=== PATIENT | female | born 1935 | race Caucasian/White ===

== ENCOUNTER 2022-05-03 22:00 | Inpatient (IN) ==
[2022-05-03] MEDS ORDERED: ACETAMINOPHEN 500 MG TAB PO STA (22:22)
[2022-05-03 22:53] LABS: Appearance Urine Clear (Clear); Bacteria Urine Automated Negative (Negative); Bilirubin Urine Negative (Negative); Blood Urine Negative (Negative); Color Urine Yellow; Glucose Urine UA Negative (Negative); Ketones Urine Negative (Negative); Leukocyte Esterase Urine Trace (Negative); Nitrite Urine Negative (Negative); Protein Urine Negative (Negative); RBC Urine Automated 0-4 /hpf (0-4); Urobilinogen Urine Negative (Negative)
[2022-05-03] MEDS ORDERED: hydrALAZINE HCL 20 MG/ML VIAL IV STA (23:42)
[2022-05-03 23:50] LABS: Basophils # (auto) 0.03 K/uL (0-0.2); Basophils % (auto) 0.4 %; Eosinophils # (auto) 0.19 K/uL (0-0.50); Eosinophils % (auto) 2.3 %; Hematocrit (blood only) 36.7 % (34.1-44.9); Hemoglobin 11.9 g/dl (12.0-16.0); Immature Granulocytes # (auto) 0.07 K/uL (0.00-0.02); Immature Granulocytes % (auto) 0.8 %; Lymphocytes # (auto) 1.23 K/uL (1.2-3.4); Lymphocytes % (auto) 14.8 %; Mean Corpuscular Hemoglobin 27.8 pg (25.0-34.0); Mean Corpuscular Hgb Conc 32.4 g/dL (32.0-36.0); Mean Corpuscular Volume 85.7 fL (80.0-100.0); Mean Platelet Volume 11.9 fL (9.4-12.3); Monocytes # (auto) 0.39 K/uL (0.24-0.82); Monocytes % (auto) 4.7 %; Neutrophils # (auto) 6.42 K/uL (1.4-6.5); Platelet Count 193 K/uL (130-400); RDW Coefficient of Variation 12.4 % (11.5-14.5); Red Blood Count 4.28 M/uL (3.93-5.22); White Blood Count 8.33 K/ul (4.8-10.8)
[2022-05-04 00:04] LABS: Alanine Aminotransferase 24 U/L (7-52); Albumin Globulin Ratio 1.7 (0.9-2); Alkaline Phosphatase 72 U/L (34-104); Anion Gap 7 (3-11); Aspartate Aminotransferase 26 U/L (13-39); BUN Creatinine Ratio 27.6 (10-20); Bilirubin,Total 0.3 mg/dl (0.2-1.0); Blood Urea Nitrogen 24 mg/dl (6-23); Calcium 9.9 mg/dl (8.5-10.1); Carbon Dioxide 30 mmol/L (21-32); Chloride 102 mmol/L (98-107); Est GFR (African American) 69.4 ml/min; Est GFR (Non-African American) 59.9 ml/min; Globulin 2.4 gm/dl (2.5-4.0); Glucose 148 mg/dl (70-99(Fasting)); Magnesium 1.8 mg/dl (1.7-2.4); Potassium 3.6 mmol/L (3.5-5.1); Sodium 139 mmol/L (136-145); Total Protein 6.4 gm/dl (6.0-8.3)
[2022-05-04 00:07] LABS: Troponin I High Sensitivity 12.9 pg/ml (0-14)
[2022-05-04 00:17] LABS: Thyroid Stimulating Hormone 4.783 uIu/ml (0.300-4.500)
[2022-05-04 00:21] LABS: INR 1.2 (0.9-1.1); Prothrombin Time 12.7 Seconds (9.0-12.0)
--- NOTE | 2022-05-04 00:30 | Emergency Department Note ---
Impression & Plan Fall, CHI (closed head injury), Contusion of hip, left, Acute low back pain, Hypoxia ED Provider Note INFORMANT: Patient ED PROVIDER(S): Shaheed Jordan MD CHIEF COMPLAINT: Fall PLAN: Disposition: Admitted Condition: Good Outpatient prescription management: none Referral: None MEDICAL DECISION MAKING: Patient presented after a fall. She was noted to be very hypertensive and mildly hypoxic on examination. She was in good spirits. Large hematoma noted to the left forehead. X-ray imaging of the left hip and chest were unremarkable. No sign of fracture or dislocation. The patient's head CT did not show any acute intracranial findings. CT scan of the cervical spine was negative as well. Patient had an unremarkable CBC and chemistry panel. Urinalysis did not reveal any clear sign of infection. ECG showed a bradycardia but no acute findings. Patient's lumbar spine CT showed degenerative changes and postoperative findings but no acute compression fracture or other traumatic injury. The patient was doing well on supplemental oxygen. She did require dose of IV hydralazine for her significantly elevated blood pressure. She was also given Tylenol and an ice pack for the hematoma. I did discuss the findings with the patient and her daughter. Further management in the hospital was felt to be appropriate. Consultation was made with the [facility] hospitalist sruthi samuels. Patient was evaluated in the ER and admitted for further management. Triage Nursing notes reviewed and agree them. Vital Signs: reviewed and remarkable for hypertension and mild hypoxia Differential diagnosis: Trauma, infection, dehydration, metabolic abnormality, hypo/hyperglycemia, electrolyte disturbance, anemia, hypoxia, cardiac sources, intracerebral event, toxicologic, neurologic, as well as other pathologies. Diagnostics interpreted by me: ECG: Twelve-lead ECG reveals a sinus bradycardia 58 bpm. Septal Q waves present. No ST elevation or depression. Normal axis. Cardiac Monitoring: Cardiac monitoring ordered by me: The patient was placed on continuous cardiac monitoring and observed. It revealed a normal sinus rhythm at 61 beats per minute without ectopy or evidence of dysrhythmia. Imaging studies: CT scans of the head, cervical spine and lumbar spine as noted above. I refer you to the EMR for further details. Chest x-ray. Findings: A chest x-ray was performed and revealed no pneumothorax, effusion, infiltrate, pulmonary edema, free air under the diaphragm, or wide mediastinum. Impression: No acute disease. X-ray imaging of the left hip reveals a normal prosthetic without evidence of dislocation or periprosthetic fracture. HPI: The patient is a 86year old female who presents to the Emergency Room with complaints of fall. This started just prior to arrival and is described as losing her balance after showering and landing on her left side. Patient states that she did strike her left hip and her left forehead on the floor. EMS was summoned. Patient did note some mild shoulder aching, mild neck discomfort, low back pain, left hip pain. On arrival patient was noted to be mildly hypoxic. The patient has took no medication for relieving factors. Current pain is rated as 2/10. Pt denies LOC, fevers, chills, diaphoresis, visual changes, chest pain, breathing difficulties, nausea, vomiting, abdominal pain, melena, hematochezia, urinary symptoms, numbness, focal weakness, lymphadenopathy, rash, or other complaints. ROS: See above HPI for pertinent positives & negatives. A total of 10 systems reviewed and were otherwise negative. PAST MEDICAL HISTORY:See Below , hypertension, dementia PAST SURGICAL HISTORY:See Below, left hip replacement FAMILY HISTORY:See Below SOCIAL HISTORY:See Below, retired HOME MEDICATIONS:See Below ALLERGIES:See Below VITALS:See Below PHYSICAL EXAMINATION: GENERAL: Awake, alert, well-appearing, in no distress HENT: Normocephalic, large left forehead hematoma present. PERRLA. EOMI. Oropharynx unremarkable. EYES: Normal conjunctiva. Sclera non-icteric. NECK: Inspection normal. Non-tender. Supple. No nuchal rigidity. FROM. No masses. RESPIRATORY: Clear to auscultation. No wheezes. No rales. Normal respiratory effort. CARDIAC: Normal rate. Normal rhythm. No murmurs. No rubs. Extremities warm and well perfused. Pulses equal. No JVD. GI: Soft, non-distended. No tenderness to palpation. No rebound or guarding. No masses. RECTAL: Deferred. MUSCULOSKELETAL: Atraumatic. Chest examination reveals no tenderness. The back is symmetrical on inspection without obvious abnormality. There is no CVA tenderness to palpation. No joint edema. LOWER EXTREMITIES: Calves are equal size bilaterally and non-tender. No edema. No discoloration. NEURO: Mildly demented sensorium with short-term memory issues but otherwise unremarkable. No sensory or motor deficits noted. SKIN: No rash or jaundice noted. Shaheed Jordan MD Past Med/Surg History Medical History CHF (congestive heart failure) GERD (gastroesophageal reflux disease) Hypertension Social History Smoking Status: Never smoker Preferred Language: Chadian Feels Safe at Home: Yes Allergies Allergies Allergy/AdvReac Type Severity Reaction Status Date / Time Sulfa (Sulfonamide Allergy Intermediate RASH Verified 05/03/22 23:06 Antibiotics) ranitidine AdvReac Intermediate CONFUSION Verified 05/03/22 23:06 Home Meds Home Medications Medication Instructions Recorded Confirmed ascorbic acid (vitamin C) 500 mg 500 mg PO DAILY 03/28/22 05/03/22 tablet (Vitamin C) aspirin 81 mg tablet,delayed 81 mg PO DAILY 03/28/22 05/03/22 release cholecalciferol (vitamin D3) 50 50 mcg PO DAILY 03/28/22 05/03/22 mcg (2,000 unit) tablet (Vitamin D3) coenzyme Q10 100 mg capsule 100 mg PO DAILY 03/28/22 05/03/22 (CoQ-10) docusate sodium 250 mg capsule 500 mg PO HS 03/28/22 05/03/22 (Stool Softener) fluoxetine 20 mg capsule 20 mg PO DAILY 03/28/22 05/03/22 furosemide 20 mg tablet 40 mg PO DAILY 03/28/22 05/03/22 ibuprofen 200 mg tablet 400 mg PO TID 03/28/22 05/03/22 metoprolol succinate 25 mg 25 mg PO DAILY 03/28/22 05/03/22 tablet,extended release 24 hr mirtazapine 7.5 mg tablet 7.5 mg PO HS 03/28/22 05/03/22 multivitamin 1 tab PO DAILY 03/28/22 05/03/22 pantoprazole 40 mg tablet,delayed 40 mg PO DAILY 03/28/22 05/03/22 release polyethylene glycol 3350 17 gram 17 g PO HS 03/28/22 05/03/22 oral powder packet (Miralax) calcium carbonate 500 mg calcium 500 mg PO DAILY 05/03/22 05/03/22 (1,250 mg) tablet losartan 100 mg tablet 100 mg PO DAILY 05/03/22 05/03/22 Results & Data (ED) Vital Signs Vital Signs - 24 hr 05/03/22 22:34 05/03/22 22:34 05/03/22 22:34 Temperature 36.8 C 36.8 C Temperature Source Oral Oral Pulse Rate 65 65 Pulse Rate [Finger] 65 Pulse Rhythm Regular Regular Pulse Rhythm [Finger] Regular Pulse Strength Normal Pulse Strength [Finger] Normal Respiratory Rate 20 20 20 Respiratory Effort / Characteristics Non-Labored Spontaneous Non-Labored Spontaneous Respiratory Depth Normal Normal Blood Pressure 220/109 H Blood Pressure [Right Arm] 220/109 H Blood Pressure Mean 146 Blood Pressure Mean [Right Arm] 146 Blood Pressure Position [Right Arm] Sitting Pulse Oximetry 87 L 96 87 L Oxygen Delivery Method Room Air Nasal Cannula Room Air Oxygen Flow Rate 2 2 Sepsis Recent Fever Within 48 Hours No Sepsis New/Unexplained Change in Mental Status N/A Sepsis Action Taken by Nursing No Action Required 05/04/22 00:26 Temperature Temperature Source Pulse Rate Pulse Rate [Finger] 58 L Pulse Rhythm Pulse Rhythm [Finger] Pulse Strength Pulse Strength [Finger] Respiratory Rate 20 Respiratory Effort / Characteristics Respiratory Depth Blood Pressure Blood Pressure [Right Arm] 184/97 H Blood Pressure Mean Blood Pressure Mean [Right Arm] 126 Blood Pressure Position [Right Arm] Pulse Oximetry 99 Oxygen Delivery Method Room Air Oxygen Flow Rate Sepsis Recent Fever Within 48 Hours Sepsis New/Unexplained Change in Mental Status Sepsis Action Taken by Nursing Laboratory Data Result diagrams: 05/03/22 23:10 05/03/22 23:10 Lab Results 05/03/22 05/03/22 05/03/22 Range/Units 22:27 22:27 23:10 WBC (4.8-10.8) K/ul RBC (3.93-5.22) M/uL Hgb (12.0-16.0) g/dl Hct (34.1-44.9) % MCV (80.0-100.0) fL MCH (25.0-34.0) pg MCHC (32.0-36.0) g/dL RDW Std Deviation (36.4-46.3) fL RDW Coeff of Ibeth (11.5-14.5) % Plt Count (130-400) K/uL MPV (9.4-12.3) fL Immature Gran % (Auto) % Neut % (Auto) % Lymph % (Auto) % Hardy % (Auto) % Eos % (Auto) % Baso % (Auto) % Neut # (Auto) (1.4-6.5) K/uL Lymph # (Auto) (1.2-3.4) K/uL Hardy # (Auto) (0.24-0.82) K/uL Eos # (Auto) (0-0.50) K/uL Baso # (Auto) (0-0.2) K/uL Immature Gran # (Auto) (0.00-0.02) K/uL PT 12.7 H (9.0-12.0) Seconds INR 1.2 H (0.9-1.1) Sodium (136-145) mmol/L Potassium (3.5-5.1) mmol/L Chloride (98-107) mmol/L Carbon Dioxide (21-32) mmol/L Anion Gap (3-11) BUN (6-23) mg/dl Creatinine (0.6-1.2) mg/dl Est Cr Clr Drug Dosing Est GFR ( Amer) ml/min Est GFR (Non-Af Amer) ml/min BUN/Creatinine Ratio (10-20) Glucose (70-99(Fasting)) mg/dl Calcium (8.5-10.1) mg/dl Magnesium (1.7-2.4) mg/dl Total Bilirubin (0.2-1.0) mg/dl AST (13-39) U/L ALT (7-52) U/L Alkaline Phosphatase (34-104) U/L Troponin I High Sens (0-14) pg/ml Total Protein (6.0-8.3) gm/dl Albumin (3.4-5.0) gm/dl Globulin (2.5-4.0) gm/dl Albumin/Globulin Ratio (0.9-2) TSH (0.300-4.500) uIu/ml Free T4 (0.61-1.60) ng/dl Urine Color Yellow Urine Appearance Clear (Clear) Urine pH 6.0 (4.5-7.5) Ur Specific [place] 1.010 (1.000-1.030) Urine Protein Negative (Negative) Urine Glucose (UA) Negative (Negative) Urine Ketones Negative (Negative) Urine Blood Negative (Negative) Urine Nitrite Negative (Negative) Urine Bilirubin Negative (Negative) Urine Urobilinogen Negative (Negative) Ur Leukocyte Esterase Trace H (Negative) Urine WBC (Auto) 5-10 H (0-5) /hpf Urine RBC (Auto) 0-4 (0-4) /hpf U Hyaline Cast (Auto) 1-5 (0-5) /lpf U Epithel Cells (Auto) 10-20 H (0-5) /lpf Urine Bacteria (Auto) Negative (Negative) SARS-CoV-2, RNA, NAAT NEGATIVE (NEGATIVE) 05/03/22 05/03/22 05/03/22 Range/Units 23:10 23:10 23:10 WBC 8.33 (4.8-10.8) K/ul RBC 4.28 (3.93-5.22) M/uL Hgb 11.9 L (12.0-16.0) g/dl Hct 36.7 (34.1-44.9) % MCV 85.7 (80.0-100.0) fL MCH 27.8 (25.0-34.0) pg MCHC 32.4 (32.0-36.0) g/dL RDW Std Deviation 39.0 (36.4-46.3) fL RDW Coeff of Ibeth 12.4 (11.5-14.5) % Plt Count 193 (130-400) K/uL MPV 11.9 (9.4-12.3) fL Immature Gran % (Auto) 0.8 % Neut % (Auto) 77.0 % Lymph % (Auto) 14.8 % Hardy % (Auto) 4.7 % Eos % (Auto) 2.3 % Baso % (Auto) 0.4 % Neut # (Auto) 6.42 (1.4-6.5) K/uL Lymph # (Auto) 1.23 (1.2-3.4) K/uL Hardy # (Auto) 0.39 (0.24-0.82) K/uL Eos # (Auto) 0.19 (0-0.50) K/uL Baso # (Auto) 0.03 (0-0.2) K/uL Immature Gran # (Auto) 0.07 H (0.00-0.02) K/uL PT (9.0-12.0) Seconds INR (0.9-1.1) Sodium 139 (136-145) mmol/L Potassium 3.6 (3.5-5.1) mmol/L Chloride 102 (98-107) mmol/L Carbon Dioxide 30 (21-32) mmol/L Anion Gap 7 (3-11) BUN 24 H (6-23) mg/dl Creatinine 0.87 (0.6-1.2) mg/dl Est Cr Clr Drug Dosing Not Reportable Est GFR ( Amer) 69.4 ml/min Est GFR (Non-Af Amer) 59.9 ml/min BUN/Creatinine Ratio 27.6 H (10-20) Glucose 148 H (70-99(Fasting)) mg/dl Calcium 9.9 (8.5-10.1) mg/dl Magnesium 1.8 (1.7-2.4) mg/dl Total Bilirubin 0.3 (0.2-1.0) mg/dl AST 26 (13-39) U/L ALT 24 (7-52) U/L Alkaline Phosphatase 72 (34-104) U/L Troponin I High Sens 12.9 D (0-14) pg/ml Total Protein 6.4 (6.0-8.3) gm/dl Albumin 4.0 (3.4-5.0) gm/dl Globulin 2.4 L (2.5-4.0) gm/dl Albumin/Globulin Ratio 1.7 (0.9-2) TSH 4.783 H (0.300-4.500) uIu/ml Free T4 1.17 (0.61-1.60) ng/dl Urine Color Urine Appearance (Clear) Urine pH (4.5-7.5) Ur Specific [place]ell (1.000-1.030) Urine Protein (Negative) Urine Glucose (UA) (Negative) Urine Ketones (Negative) Urine Blood (Negative) Urine Nitrite (Negative) Urine Bilirubin (Negative) Urine Urobilinogen (Negative) Ur Leukocyte Esterase (Negative) Urine WBC (Auto) (0-5) /hpf Urine RBC (Auto) (0-4) /hpf U Hyaline Cast (Auto) (0-5) /lpf U Epithel Cells (Auto) (0-5) /lpf Urine Bacteria (Auto) (Negative) SARS-CoV-2, RNA, NAAT (NEGATIVE) Administered Medications Discontinued Medications Acetaminophen (Acetaminophen 500 Mg Tab) 1,000 mg PO NOW STA Stop: 05/03/22 22:23 Last Admin: 05/03/22 23:11 Dose: 1,000 mg Documented By: JAILENE Hydralazine HCl (Hydralazine Hcl 20 Mg/Ml Vial) 5 mg IV NOW STA Stop: 05/03/22 23:43 Last Admin: 05/03/22 23:53 Dose: 5 mg Documented By: JAILENE Discharge Plan Visit Data Chief Complaint: Fall ED Provider: Shaheed Jordan Discharge Problem: Fall, CHI (closed head injury), Contusion of hip, left, Acute low back pain, Hypoxia Forms Stand Alone Forms: My [facility] [facility] Prescriptions Prescriptions: No Action losartan 100 mg tablet 100 mg PO DAILY calcium carbonate [Calcium 500] 500 mg calcium (1,250 mg) Tablet 500 mg PO DAILY multivitamin Tablet 1 tab PO DAILY polyethylene glycol 3350 [Miralax] 17 gram Powder In Packet 17 g PO HS aspirin [Aspir-Low] 81 mg Tablet,Delayed Release (Dr/Ec) 81 mg PO DAILY ascorbic acid (vitamin C) [Vitamin C] 500 mg Tablet 500 mg PO DAILY pantoprazole 40 mg Tablet,Delayed Release (Dr/Ec) 40 mg PO DAILY ibuprofen 200 mg Tablet 400 mg PO TID Rx Instructions: noon,evening and bedtime furosemide 20 mg tablet 40 mg PO DAILY metoprolol succinate 25 mg tablet extended release 24 hr 25 mg PO DAILY docusate sodium [Stool Softener] 250 mg Capsule 500 mg PO HS fluoxetine 20 mg capsule 20 mg PO DAILY coenzyme Q10 [CoQ-10] 100 mg Capsule 100 mg PO DAILY mirtazapine 7.5 mg tablet 7.5 mg PO HS cholecalciferol (vitamin D3) [Vitamin D3] 50 mcg (2,000 unit) Tablet 50 mcg PO DAILY Referrals Referrals: Edgar Rodriguez D.O. [Primary Care Provider] -
[2022-05-04 01:00] LABS: T4 Free Thyroxine 1.17 ng/dl (0.61-1.60)
[2022-05-04] MEDS ORDERED: oxyCODONE HCL IR 5 MG TAB (IMMEDIATE RELEASE) PO PRN (02:47)
[2022-05-04] MEDS ORDERED: POLYETHYLENE (MIRALAX) 17 GM PACK PO PRN (02:47)
[2022-05-04] MEDS ORDERED: ACETAMINOPHEN 325 MG TAB PO PRN (02:47)
[2022-05-04] MEDS ORDERED: hydrALAZINE HCL 20 MG/ML VIAL IV PRN (02:47)
--- NOTE | 2022-05-04 04:46 | History and Physical Report ---
DATE OF ADMISSION: 05/04/2022. CHIEF COMPLAINT: Status post fall. HISTORY OF PRESENT ILLNESS: An 86-year-old female with past medical history significant for AFib, not on anticoagulation, the patient states she bleeds easily, history of 2 strokes, history of hypertension, GERD, depression, presents with a fall. 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 Seems after left hip arthroplasty, did fine in rehab and since then, she is living with her daughter. She is ambulating with a walker. Today in laundry room, she was standing with walker and tried to turn when , she fell on the floor on the left side and hit her head. There is a bruise on the left of the forehead . There is no loss of consciousness. In the ER when she came in, on room air, she was hypoxic at 87%, with 2 liters, she is saturating fine.Says initially after fall she was short of breath, but right now she is feeling okay. Denies any chest pain, no nausea, no abdominal pain. Normal bowel and bladder movements. No recent fever or chills. Occasional cough. Says she has some mild headache. Her vision is okay when she uses glasses. No runny nose, no sore throat. Appetite is okay. Daughter in the room is helping with the H and P. Currently, resting comfortably and hemodynamically stable. Blood pressure is somewhat running high. ALLERGIES: TO SULFA ANTIBIOTICS, PENICILLIN. PAST MEDICAL HISTORY: As mentioned above. PAST SURGICAL HISTORY: Back surgery, feet surgery, left hip surgery. MEDICATIONS: The patient is on ascorbic acid 500 mg p.o. daily, aspirin 81 mg p.o. daily, calcium carbonate 500 mg p.o. daily, vitamin D 50 mcg p.o. daily, Coenzyme Q10 100 mg p.o. daily, Colace 500 mg p.o. at bedtime, fluoxetine 20 mg p.o. daily, Lasix 40 mg p.o. daily, ibuprofen 400 mg t.i.d., losartan 100 mg p.o. daily, metoprolol succinate 25 mg p.o. daily, mirtazapine 7.5 mg p.o. at bedtime, multivitamin 1 tablet p.o. daily, Protonix 40 mg p.o. daily, MiraLax 17 g p.o. at bedtime. FAMILY HISTORY: Father and mother had heart disease. SOCIAL HISTORY: No smoking, no alcohol. Currently lives with her daughter. REVIEW OF SYSTEMS: As per HPI. Rest of review of systems is negative. PHYSICAL EXAMINATION: GENERAL: The patient is of moderate build, not in acute distress. VITAL SIGNS: Temperature 36.8, pulse 61, respiratory rate 20, blood pressure 196/85, oxygen 98% on room air. HEENT: Pupils equal, round and reactive to light. Extraocular muscles intact. Oral mucosa moist. NECK: No JVD, no neck masses. CARDIOVASCULAR: S1 and S2 heard. Regular rate and rhythm. No murmur, no gallop. RESPIRATORY SYSTEM: Normal AP diameter. No accessory muscle use. No wheezing, no crackles. ABDOMEN: Soft, bowel sounds present, nontender, no distention. CENTRAL NERVOUS SYSTEM: Cranial nerves II through XII are grossly intact. No facial droop. Speech is clear. Obeys simple commands. Moves extremities. EXTREMITIES: Mild pedal edema present, painful movements of the left lower extremity. No erythema seen. LABORATORY DATA: WBC 8.3, hemoglobin 11.9, hematocrit 36.7, platelets 193. PT 12.7, INR 1.2. Sodium 139, potassium 3.6, chloride 102, bicarbonate 30, BUN 24, creatinine 0.8, serum glucose 148, calcium 9.9, magnesium 1.8, total bilirubin 0.3, AST 26, ALT 24, alkaline phosphatase 102. Troponin I high sensitivity 12.9. BNP 435. TSH is 4.7, free T4 1.1. Urinalysis, trace leukocyte esterase. SARS-CoV-2 rapid test negative. IMAGING DATA: Chest x-ray, no acute findings. Lumbar spine CT preliminary report unremarkable. Head CT, left frontal scalp hematoma seen. Otherwise, no acute findings. Cervical spine CT mild to moderate degenerative changes. No acute findings. EKG: Sinus bradycardia at a rate of 58, no acute ST changes seen. ASSESSMENT AND PLAN: This is an 86-year-old female who presents with fall. 1. Fall: Mechanical fall, hit on head. Denies LOC. Left frontal scalp hematoma present. History of falls in the past, ambulates with a walker. We will do PT/OT. Social service to help with discharge planning, rehab versus home PT. 2. History of atrial fibrillation: On metoprolol and aspirin. Not on any further anticoagulation because the patient says she bleeds easily. We will monitor. 3. History of depression: Continue fluoxetine. 4. History of hypertension: On metoprolol, losartan and Lasix. We will monitor blood pressure. Currently, blood pressure running high, could be situational. Place on IV hydralazine p.r.n. 5. History of depression: Continue fluoxetine and mirtazapine. 6. Gastroesophageal reflux disease: Continue Protonix. 7. Deep venous thrombosis prophylaxis: SCDs for now. DISPOSITION: Admit to medical floor. PT/OT. Social service to help with discharge planning. CODE STATUS: DNR/DNI as per discussion with the daughter and the patient. Job ID: [id number] MTDD
--- NOTE | 2022-05-04 07:15 | CT Scan Report ---
HEAD CT NONCONTRAST CT DOSE: 1763.61 mGy.cm HISTORY: fall, left hematoma TECHNIQUE: Multiaxial CT images of the head were performed without the use of intravenous contrast. A utomated exposure control was utilized for this study. A dose lowering technique was utilized adheri ng to the principles of ALARA. Comparison: Head CT 03/28/2022. Findings: The paranasal sinuses and mastoid air cells are clear. The calvarium and skull base are int act. There is no mass, hematoma, midline shift, acute infarct. White matter hypodensity is nonspecifi c but suggestive of microvascular ischemic change. The ventricles and sulci demonstrate mild age-rela gera involutional changes. Left frontal/supraorbital scalp hematoma. Impression: No acute intracranial abnormality. Atrophy and microvascular ischemic changes. Left frontal scalp hem atoma. ACT 112: Negative or not required by law. Electronically signed by: Enmanuel Myers M.D. 05/04/2022 7:14 AM
--- NOTE | 2022-05-04 07:19 | CT Scan Report ---
LUMBAR SPINE CT CT DOSE: HISTORY: fall, low back pain TECHNIQUE: Multiaxial CT images of the lumbar spine were performed and reformatted in the sagittal an d coronal plane without the use of contrast. A dose lowering technique was utilized adhering to the principles of ALARA. COMPARISON: None. FINDINGS: Mild dextroscoliosis. L4-S1 posterior decompression and fusion with pedicle screws and rods . The hardware appears intact. 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 The visualized sacrum is intact. Partially visualized large hypodense lesion within th e left kidney likely representing a cyst. Paravertebral soft tissues are unremarkable. Moderate centr al canal narrowing at L3-L4. IMPRESSION: 1. No fractures within the lumbar spine. 2. Degenerative and postoperative changes as described above. ACT 112: Negative or not required by law. Electronically signed by: Enmanuel Myers M.D. 05/04/2022 7:17 AM
[2022-05-04 07:30] LABS: Basophils # (auto) 0.04 K/uL (0-0.2); Basophils % (auto) 0.5 %; Eosinophils # (auto) 0.17 K/uL (0-0.50); Hematocrit (blood only) 35.3 % (34.1-44.9); Hemoglobin 11.4 g/dl (12.0-16.0); Immature Granulocytes # (auto) 0.04 K/uL (0.00-0.02); Immature Granulocytes % (auto) 0.5 %; Lymphocytes % (auto) 13.2 %; Mean Corpuscular Hemoglobin 27.7 pg (25.0-34.0); Mean Corpuscular Hgb Conc 32.3 g/dL (32.0-36.0); Mean Corpuscular Volume 85.7 fL (80.0-100.0); Mean Platelet Volume 11.4 fL (9.4-12.3); Monocytes # (auto) 0.56 K/uL (0.24-0.82); Monocytes % (auto) 6.7 %; Neutrophils # (auto) 6.44 K/uL (1.4-6.5); Neutrophils % (auto) 77.1 %; Platelet Count 168 K/uL (130-400); RDW Coefficient of Variation 12.4 % (11.5-14.5); RDW Standard Deviation 38.9 fL (36.4-46.3); Red Blood Count 4.12 M/uL (3.93-5.22); White Blood Count 8.35 K/ul (4.8-10.8)
--- NOTE | 2022-05-04 07:37 | XRay Report ---
XR hip LT 2V w pelvis CLINICAL HISTORY: fall. Left hip pain. COMPARISON STUDY: None. FINDINGS: The bones are osteopenic. There is a left hip hemiarthroplasty. The hardware appears intact . L4 through S1 posterior decompression and fusion with pedicle screws and rods. No fracture or dislo cation within the left hip. Mild lateral soft tissue swelling within the left hip. IMPRESSION: No fracture or dislocation within the pelvis or hips. ACT 112: Negative or not required by law. Electronically signed by: Enmanuel Myers M.D. 05/04/2022 7:35 AM
--- NOTE | 2022-05-04 07:39 | XRay Report ---
XR chest 1V portable HISTORY: fall, hypoxia COMPARISON: Chest 03/28/2022. FINDINGS: The cardiac silhouette remains mildly enlarged. Postoperative changes again noted within th e right lung apex. No pleural effusions. No pneumothorax. No new focal lung consolidations to suggest pneumonia. Mild chronic interstitial thickening persists. No evidence for pulmonary edema. IMPRESSION: Chronic changes as described above. No acute process within the chest. ACT 112: Negative or not required by law. Electronically signed by: Enmanuel Myers M.D. 05/04/2022 7:38 AM
--- NOTE | 2022-05-04 08:02 | CT Scan Report ---
CT cervical spine wo con CLINICAL HISTORY: 86 years-old Female with fall. Acute neck pain status post fall COMPARISON: Head CT of same day. TECHNIQUE: Multiple axial CT images of the cervical spine were obtained without contrast. A dose low ering technique was utilized adhering to the principles of ALARA. FINDINGS: Demineralized appearance of the bones with multilevel degenerative changes. Grade 1 anterol isthesis T1 on T2 is likely degenerative. Multilevel degenerative related fusion of the facets. Mild levoscoliosis may be positional. No acute fracture or subluxation is identified. Evaluation central c anal and neuroforamina is better assessed by MRI. Subcentimeter bone island involves the right transv erse process at T1. Intralobular septal thickening with groundglass densities of the lung apices. Prior pulmonary resecti on of the right lung apex. No pneumothorax. Heterogeneous thyroid. No prevertebral edema. IMPRESSION: No acute cervical spine fracture or subluxation. ACT 112: Negative or not required by law. The above report was generated using voice recognition software. It may contain grammatical, syntax o r spelling errors. Electronically signed by: Isreal Eubanks M.D. 05/04/2022 8:00 AM
[2022-05-04 08:03] LABS: Anion Gap 6 (3-11); BUN Creatinine Ratio 29.1 (10-20); Blood Urea Nitrogen 23 mg/dl (6-23); Calcium 9.7 mg/dl (8.5-10.1); Carbon Dioxide 29 mmol/L (21-32); Chloride 105 mmol/L (98-107); Est GFR (Non-African American) 67.3 ml/min; Glucose 131 mg/dl (70-99(Fasting)); Magnesium 1.8 mg/dl (1.7-2.4); Potassium 3.6 mmol/L (3.5-5.1); Sodium 140 mmol/L (136-145)
[2022-05-04] MEDS: CHOLECALCIFEROL 1,000 UNITS 25 MCG TAB PO SCH (09:23)
[2022-05-04] MEDS: CALCIUM CARBONATE 500 MG CHEWABLE TAB PO SCH (09:23)
[2022-05-04] MEDS: LOSARTAN POTASSIUM 50 MG TAB PO SCH (09:23)
[2022-05-04] MEDS: PANTOprazole 40 MG TAB PO SCH (09:23)
[2022-05-04] MEDS: FLUoxetine HCL 20 MG CAP PO SCH (09:23)
[2022-05-04] MEDS: ASCORBIC ACID 500 MG TAB PO SCH (09:23)
[2022-05-04] MEDS: ASPIRIN 81 MG ECTAB PO SCH (09:23)
[2022-05-04] MEDS: METOPROLOL SUCC 25MG EXT REL TAB PO SCH (09:24)
[2022-05-04] MEDS: MULTIVITAMIN TAB PO SCH (09:24)
[2022-05-04] MEDS: FUROSEMIDE 40 MG TAB PO SCH (09:24)
--- NOTE | 2022-05-04 14:32 | Electrocardiogram Report ---
Test Reason : Blood Pressure : / mmHG Vent. Rate : 060 BPM Atrial Rate : 059 BPM P-R Int : 000 ms QRS Dur : 078 ms QT Int : 464 ms P-R-T Axes : 000 -07 027 degrees QTc Int : 464 ms Poor data quality, interpretation may be adversely affected Sinus rhythm Normal ECG When compared with ECG of 28-MAR-2022 13:30, No significant change Confirmed by Trent Swartz ([id number]) on 05/04/2022 2:31:55 PM Referred By: REFERRED SELF Confirmed By:Trent Swartz
[2022-05-04] MEDS ORDERED: DOCUSATE CALCIUM 240 MG CAPSULE PO SCH (21:00)
[2022-05-04] MEDS ORDERED: MIRTAZAPINE TAB 15 MG TAB PO SCH (21:00)
[2022-05-04] MEDS ORDERED: POLYETHYLENE (MIRALAX) 17 GM PACK PO SCH (21:00)
[2022-05-05] MEDS: CHOLECALCIFEROL 1,000 UNITS 25 MCG TAB PO SCH (09:54)
[2022-05-05] MEDS: FUROSEMIDE 40 MG TAB PO SCH (09:54)
[2022-05-05] MEDS: METOPROLOL SUCC 25MG EXT REL TAB PO SCH (09:54)
[2022-05-05] MEDS: PANTOprazole 40 MG TAB PO SCH (09:54)
[2022-05-05] MEDS: LOSARTAN POTASSIUM 50 MG TAB PO SCH (09:54)
[2022-05-05] MEDS: ASPIRIN 81 MG ECTAB PO SCH (09:54)
[2022-05-05] MEDS: MULTIVITAMIN TAB PO SCH (09:54)
[2022-05-05] MEDS: ASCORBIC ACID 500 MG TAB PO SCH (09:54)
[2022-05-05] MEDS: FLUoxetine HCL 20 MG CAP PO SCH (09:55)
[2022-05-05] MEDS: CALCIUM CARBONATE 500 MG CHEWABLE TAB PO SCH (10:00)
--- NOTE | 2022-05-05 16:05 | Discharge Summary ---
Date of Service May 05, 2022 Admission HPI Per Admitting Provider An 86-year-old female with past medical history significant for AFib, not on anticoagulation, the patient states she bleeds easily, history of 2 strokes, history of hypertension, GERD, depression, presents with a fall. 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 Seems after left hip arthroplasty, did fine in rehab and since then, she is living with her daughter. She is ambulating with a walker. Today in laundry room, she was standing with walker and tried to turn when , she fell on the floor on the left side and hit her head. There is a bruise on the left of the forehead . There is no loss of consciousness. In the ER when she came in, on room air, she was hypoxic at 87%, with 2 liters, she is saturating fine.Says initially after fall she was short of breath, but right now she is feeling okay. Denies any chest pain, no nausea, no abdominal pain. Normal bowel and bladder movements. No recent fever or chills. Occasional cough. Says she has some mild headache. Her vision is okay when she uses glasses. No runny nose, no sore throat. Appetite is okay. Daughter in the room is helping with the H and P. Currently, resting comfortably and hemodynamically stable. Blood pressure is somewhat running high. Admission Exam Per Admitting Provider GENERAL: The patient is of moderate build, not in acute distress. VITAL SIGNS: Temperature 36.8, pulse 61, respiratory rate 20, blood pressure 196/85, oxygen 98% on room air. HEENT: Pupils equal, round and reactive to light. Extraocular muscles intact. Oral mucosa moist. NECK: No JVD, no neck masses. CARDIOVASCULAR: S1 and S2 heard. Regular rate and rhythm. No murmur, no gallop. RESPIRATORY SYSTEM: Normal AP diameter. No accessory muscle use. No wheezing, no crackles. ABDOMEN: Soft, bowel sounds present, nontender, no distention. CENTRAL NERVOUS SYSTEM: Cranial nerves II through XII are grossly intact. No facial droop. Speech is clear. Obeys simple commands. Moves extremities. EXTREMITIES: Mild pedal edema present, painful movements of the left lower extremity. No erythema seen. Principal Diagnosis Fall Discharge Exam GENERAL: The patient is of moderate build, not in acute distress. HEENT:Ecchymosis and edema left forehead. EOMI. Pupils equal, round and reactive to light.Oral mucosa moist. NECK: Normal inspection CARDIOVASCULAR: S1 and S2 heard. Regular rate and rhythm. No murmur, no ga llop. RESPIRATORY SYSTEM: Normal AP diameter. No accessory muscle use. No wheezing, no crackles. ABDOMEN: Soft, bowel sounds present, nontender, no distention. NEURO:Awake and alert, able to answer simple questions appropriately. Speech is clear. Obeys simple commands. Moves extremities. EXTREMITIES: no significant LE edema noted. Moves extremities. Discharge Data Allergies Allergy/AdvReac Type Severity Reaction Status Date / Time Sulfa (Sulfonamide Allergy Intermediate RASH Verified 05/03/22 23:06 Antibiotics) ranitidine AdvReac Intermediate CONFUSION Verified 05/03/22 23:06 Consultations 05/04/22 01:11 ED Decision to Admit Stat Ordered Studies 05/03/22 22:22 CT cervical spine wo con Urgent FINDINGS: Demineralized appearance of the bones with multilevel degenerative changes. Grade 1 anterolisthesis T1 on T2 is likely degenerative. Multilevel degenerative related fusion of the facets. Mild levoscoliosis may be positional. No acute fracture or subluxation is identified. Evaluation central canal and neuroforamina is better assessed by MRI. Subcentimeter bone island involves the right transverse process at T1. Intralobular septal thickening with groundglass densities of the lung apices. 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 No pneumothorax. Heterogeneous thyroid. No prevertebral edema. IMPRESSION: No acute cervical spine fracture or subluxation. CT head/brain wo con Urgent Findings: The paranasal sinuses and mastoid air cells are clear. The calvarium and skull base are intact. There is no mass, hematoma, midline shift, acute infarct. White matter hypodensity is nonspecific but suggestive of microvascular ischemic change. The ventricles and sulci demonstrate mild age-related involutional changes. Left frontal/supraorbital scalp hematoma. Impression: No acute intracranial abnormality. Atrophy and microvascular ischemic changes. Left frontal scalp hematoma. CT lumbar spine wo con Urgent FINDINGS: Mild dextroscoliosis. L4-S1 posterior decompression and fusion with pedicle screws and rods. The hardware appears intact. 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 The visualized sacrum is intact. Partially visualized large hypodense lesion within the left kidney likely representing a cyst. Paravertebral soft tissues are unremarkable. Moderate central canal narrowing at L3-L4. IMPRESSION: 1. No fractures within the lumbar spine. 2. Degenerative and postoperative changes as described above. Hospital Course (1) Fall: (2) Hypoxia: This is an 86-year-old female who presents with fall. 1. Fall: Mechanical fall, hit on head. Denies LOC. Left frontal scalp hematoma present. History of falls in the past, ambulates with a walker. PT/OT eval Plan to DC w/ HH Hypoxia - Patient was found slightly hypoxic in the ED. Currently on room air, saturating 94%. Resolved. 2. History of atrial fibrillation: On metoprolol and aspirin. Not on any further anticoagulation because the patient says she bleeds easily. We will monitor. 3. History of depression: Continue fluoxetine. 4. History of hypertension: On metoprolol, losartan and Lasix. Blood pressure somewhat elevated, monitor at home, follow-up with primary care doctor. 5. History of depression: Continue fluoxetine and mirtazapine. 6. Gastroesophageal reflux disease: Continue Protonix. DVT prophylaxis: SCDs for now. DISPOSITION: home w/ HH CODE STATUS: DNR/DNI as per discussion with the daughter and the patient. Total Time Total Time Spent Total Time Spent (In Minutes): 40 Discharge Plan Discharge Items Patient Disposition: Home - Home Health Services Reason For Visit: FALL Discharge Diagnosis: Fall Activity: Per Instructions section Non-emergency contact: Primary Care Provider Call non-emergency contact if: you have any medication questions and your symptoms worsen Follow-up/Referrals: [facility] [Other] (Your daughter, Radha has already made you an appointment with [facility]. ) Diet: Heart Healthy Diet Texture: Easy to Chew Addsmooth Attending Provider Instructions: Follow-up with your primary care doctor, within 1 to 2 weeks. If you can, monitor your blood pressure at home, and record your numbers. Discuss your numbers with your primary care doctor, as your blood pressure medication may need further adjustment. Pending Studies at Discharge: No Stand-Alone Forms: My [facility], Smoking Cessation Medications and DC Order Prescriptions: Continued losartan 100 mg tablet 100 mg PO DAILY calcium carbonate [Calcium 500] 500 mg calcium (1,250 mg) Tablet 500 mg PO DAILY multivitamin Tablet 1 tab PO DAILY polyethylene glycol 3350 [Miralax] 17 gram Powder In Packet 17 g PO HS aspirin [Aspir-Low] 81 mg Tablet,Delayed Release (Dr/Ec) 81 mg PO DAILY ascorbic acid (vitamin C) [Vitamin C] 500 mg Tablet 500 mg PO DAILY pantoprazole 40 mg Tablet,Delayed Release (Dr/Ec) 40 mg PO DAILY ibuprofen 200 mg Tablet 400 mg PO TID Rx Instructions: noon,evening and bedtime furosemide 20 mg tablet 40 mg PO DAILY metoprolol succinate 25 mg tablet extended release 24 hr 25 mg PO DAILY docusate sodium [Stool Softener] 250 mg Capsule 500 mg PO HS fluoxetine 20 mg capsule 20 mg PO DAILY coenzyme Q10 [CoQ-10] 100 mg Capsule 100 mg PO DAILY mirtazapine 7.5 mg tablet 7.5 mg PO HS cholecalciferol (vitamin D3) [Vitamin D3] 50 mcg (2,000 unit) Tablet 50 mcg PO DAILY Discharge Orders: Discharge Order (Routine); Ordered 05/05/22 Ordered By: Wally Dixon Admission Data Admit Date/Time: 05/04/22 02:18 Attending Provider: Wally Dixon Admit Provider: Dallas Avila Primary Care Provider: Edgar Rodriguez Other Providers: Dallas Avila ; [facility]
[2022-05-05 19:39] LABS: A calco-baum cmplx NotReported Not Detected (NotDetected); Bact fragilis Not Reported Not Detected (NotDetected); C auris Not Reported Not Detected (NotDetected); Calbicans Not Reported Not Detected (NotDetected); Candida glabrata Not Reported Not Detected (NotDetected); Candida krusei Not Reported Not Detected (NotDetected); Cneoformans/gatti Not Reported Not Detected (NotDetected); Cparapsilosis Not Reported Not Detected (NotDetected); Ctropicalis Not Reported Not Detected (NotDetected); E cloacae compx Not Reported Not Detected (NotDetected); Efaecalis Not Reported Not Detected (NotDetected); Efaecium Not Reported Not Detected (NotDetected); Enterobacterales Not Reported Not Detected (NotDetected); Escherichia coli Not Reported Not Detected (NotDetected); H influenzae Not Reported Not Detected (NotDetected); K aerogenes Not Reported Not Detected (NotDetected); Koxytoca Not Reported Not Detected (NotDetected); Kpneumoniae grp Not Reported Not Detected (NotDetected); Lmonocyt Not Reported Not Detected (NotDetected); N meningitidis Not Reported Not Detected (NotDetected); P aeruginosa Not Reported Not Detected (NotDetected); Proteus spp Not Reported Not Detected (NotDetected); Salmonella spp Not Reported Not Detected (NotDetected); Smarcescens Not Reported Not Detected (NotDetected); Staph lugdunensis Not Reported Not Detected (NotDetected); Staph spp. Not Reported Not Detected (NotDetected); Staphaureus Not Reported Not Detected (NotDetected); Staphepi Not Reported Not Detected (NotDetected); Stenmaltophilia Not Reported Not Detected (NotDetected); Strep agal(GrpB) Not Reported Not Detected (NotDetected); Strep pneum Not Reported Not Detected (NotDetected); Strep pyog (GrpA) Not Reported Not Detected (NotDetected); Strep spp Not Reported Not Detected (NotDetected)
== END 2022-05-05 17:05 | disposition home health service (06) | DRG 93 ==
LOC: ED 22:00 → EDINP 05-04 02:33 → 3W 05-04 02:52
DX: Z88.2 Allergy status to sulfonamides; M54.50 Low back pain, unspecified; S00.83XA Contusion of other part of head, initial encounter; K21.9 Gastro-esophageal reflux disease without esophagitis; Z91.81 History of falling; I10 Essential (primary) hypertension; Z88.8 Allergy status to other drugs, medicaments and biological substances; F32.A Depression, unspecified; Z86.73 Personal history of transient ischemic attack (TIA), and cerebral infarction without residual deficits; S70.02XA Contusion of left hip, initial encounter; Z79.82 Long term (current) use of aspirin; Z66 Do not resuscitate; Y92.018 Other place in single-family (private) house as the place of occurrence of the external cause; R09.02 Hypoxemia; Y99.8 Other external cause status; I48.91 Unspecified atrial fibrillation; R29.6 Repeated falls; W18.39XA Other fall on same level, initial encounter; Z96.642 Presence of left artificial hip joint; Z79.899 Other long term (current) drug therapy